=== PATIENT | female | born 1975 | race Caucasian/White ===

== ENCOUNTER 2019-05-18 02:39 | Emergency (ER) | payer MEDICAID ==
[~2019-05-18] VITALS: Ht 149.9 cm; Wt 81.8 kg
[~2019-05-18 02:39] MED LIST: CELEXA20 MG PO; CLARITIN 10 MG10 MG PO; DETROL LA4 MG PO; KLONOPIN0.5 MG PO; MOTRIN600 MG PO; PERCOCET 10/3251 TA1 PO; PRILOSEC20 MG PO; ULTRAM50 MG PO
[2019-05-18 02:51] VITALS: BP 127/84; Ht 149.9 cm; Wt 81.8 kg
[2019-05-18] MEDS ORDERED: LAMICTAL200 M1 PO (02:51)
[2019-05-18] MEDS ORDERED: PRINIVIL10 MG PO (02:52)
[2019-05-18] MEDS ORDERED: LATUDA40 MG PO (06:48)
== END 2019-05-18 04:18 | disposition left against medical advice (07) ==
LOC: D.ER 02:39
DX: S02.31XA Fracture of orbital floor, right side, initial encounter for closed fracture (principal); S02.2XXA Fracture of nasal bones, initial encounter for closed fracture; Y04.2XXA Assault by strike against or bumped into by another person, initial encounter; Y93.89 Activity, other specified; Y92.89 Other specified places as the place of occurrence of the external cause; S00.11XA Contusion of right eyelid and periocular area, initial encounter

== ENCOUNTER 2019-05-18 06:43 | Emergency (ER) | payer MEDICAID ==
[~2019-05-18] VITALS: Ht 149.9 cm; Wt 81.8 kg
[~2019-05-18 06:43] MED LIST changes: +LAMICTAL200 M1 PO; +PRINIVIL10 MG PO
[2019-05-18 06:47] VITALS: Ht 149.9 cm; Wt 81.8 kg
[2019-05-18] MEDS ORDERED: LATUDA40 MG PO (06:48)
[2019-05-18 09:23] VITALS: BP 103/74
== END 2019-05-18 09:12 | disposition other institution (70) ==
LOC: D.ER 06:43
DX: S02.31XA Fracture of orbital floor, right side, initial encounter for closed fracture (principal); Y04.2XXA Assault by strike against or bumped into by another person, initial encounter; Y93.89 Activity, other specified; Y92.89 Other specified places as the place of occurrence of the external cause; S02.2XXA Fracture of nasal bones, initial encounter for closed fracture; M79.18 Myalgia, other site; S00.11XA Contusion of right eyelid and periocular area, initial encounter

== ENCOUNTER 2021-02-10 04:53 | Emergency (ER) | payer MEDICAID ==
[~2021-02-10] VITALS: Ht 154.9 cm; Wt 54.5 kg
[~2021-02-10 04:53] MED LIST changes: +ACETAMINOPHEN500 M1 PO; +CYCLOBENZAPRINE10 MG PO; +LATUDA40 MG PO
[2021-02-10 05:02] VITALS: Ht 154.9 cm; Wt 54.5 kg
[2021-02-10 05:41] LABS: UDS - AMPHET POSITIVE QUAL (NEGATIVE); UDS - BARB NEGATIVE QUAL (NEGATIVE); UDS - BENZO POSITIVE QUAL (NEGATIVE); UDS - COCAINE NEGATIVE QUAL (NEGATIVE); UDS - OPIATE NEGATIVE QUAL (NEGATIVE); UDS - PCP NEGATIVE QUAL (NEGATIVE); UDS - THC NEGATIVE QUAL (NEGATIVE)
[2021-02-10 05:45] LABS: BILIRUBIN NEGATIVE (NEGATIVE); KETONE NEGATIVE (NEGATIVE); NITRITE POSITIVE (NEGATIVE); UROBILINOGEN NORMAL mg/dL (< 2)
[2021-02-10 05:47] LABS: BACTERIA MANY HPF (NONE SEEN); HCG URINE NEGATIVE (NEGATIVE); SQUAMOUS EPITHELIAL 0-5 HPF (0-4)
[2021-02-10 06:09] LABS: BASOPHILS 0.2 % (0-2); EOSINOPHILS 0.8 % (0-7); HEMATOCRIT 38.9 % (36.0-48.0); HEMOGLOBIN 13.2 g/dL (12-16); IMMATURE GRANULOCYTES 0.2 % (0-5); LYMPHOCYTE ABS# 2.47 10x3/uL (1.18-3.74); LYMPHOCYTES 17.9 % (15-50); MCHC 33.9 g/dL (31.0-37.0); MCV 88.4 fL (80.0-100.0); MEAN PLATELET VOLUME 9.5 fL (7.4-10.4); NEUTROPHIL ABS# 9.93 10x3/uL (1.56-6.13); NEUTROPHILS 71.9 % (40-80); RDW 12.6 % (11.5-14.5); WBC 13.8 10x3/uL (4.8-10.8)
[2021-02-10 06:16] LABS: PLATELET COUNT 227 10x3/uL (130-400)
[2021-02-10 06:30] LABS: ANION GAP 11.6 mmol/L (8-16); CALCIUM 8.5 mg/dL (8.5-10.1); CARBON DIOXIDE 27.9 mmol/L (21.0-32.0); CREATININE - SERUM 1.3 mg/dL (0.6-1.3); POTASSIUM - SERUM 3.5 mmol/L (3.5-5.1)
[2021-02-10 06:35] LABS: ALBUMIN 3.2 g/dL (3.4-5.0); BILIRUBIN - TOTAL 0.36 mg/dL (0.2-1.3); PROTEIN - SERUM 6.6 g/dL (6.4-8.2)
[2021-02-10] MEDS ORDERED: MACROBID100 MG PO (10:22)
[2021-02-10 10:28] VITALS: BP 128/73
== END 2021-02-10 10:29 | disposition home or self-care (01) ==
LOC: D.ER 04:53
PROVIDERS: Family Medicine
DX: F15.129 Other stimulant abuse with intoxication, unspecified (principal); N39.0 Urinary tract infection, site not specified; I10 Essential (primary) hypertension; Z72.0 Tobacco use